=== PATIENT | male | born 1965 | race Caucasian/White ===

== ENCOUNTER 2025-10-17 22:37 | Inpatient (IN) | payer BC, OTHER ==
[~2025-10-17] VITALS: Ht 182.9 cm; Wt 99.8 kg
[2025-10-17 22:40] VITALS: O2SAT 98
[2025-10-17] MEDS ORDERED: ONDANSETRON HCL 4MG/2ML INJ IV ONE (23:00)
[2025-10-17] MEDS: SODIUM CHLORIDE 0.9% 1,000 ML IV ONE (23:00)
[2025-10-17] MEDS ORDERED: MORPHINE SULFATE 4 MG/ML INJ (FOR IV/IM USE) IV ONE (23:00)
[2025-10-17 23:32] LABS: BASOPHILS % 0.4 % (0.0-2.0); EOSINOPHILS % 1.6 % (0.0-5.0); HEMATOCRIT. 51.4 % (42.0-52.0); HEMOGLOBIN. 17.2 g/dL (14.0-18.0); LYMPHOCYTES % 15.3 % (20.0-50.0); MEAN PLATELET VOLUME 7.8 fl (7.4-10.4); MONOCYTES % 7.7 % (2.0-8.0); NEUTROPHILS % 75.0 % (40.0-76.0); PLATELET 146 x1000/uL (130-400); RED BLOOD CELL COUNT 5.47 mill/uL (4.7-6.1); RED CELL DISTRIBUTION WIDTH 14.9 % (11.6-14.6)
[2025-10-17 23:44] LABS: INR 1.1
[2025-10-17 23:46] LABS: CREATININE 1.2 mg/dL (0.6-1.3); UREA NITROGEN BLOOD 11 mg/dL (9-23)
[2025-10-17 23:47] LABS: PROTEIN TOTAL 6.4 g/dL (6.0-8.3)
[2025-10-17 23:48] LABS: ASPARTATE AMINOTRANSFERASE 24 IU/L (<34); BILIRUBIN DIRECT 0.2 mg/dL (<=3.0)
[2025-10-17 23:49] LABS: BILIRUBIN TOTAL 0.5 mg/dL (0.1-1.0)
[2025-10-18] MEDS: ONDANSETRON HCL 4MG/2ML INJ IV NR (00:43)
[2025-10-18] MEDS: MORPHINE SULFATE 4 MG/ML INJ (FOR IV/IM USE) IV NR (00:43)
[2025-10-18 01:31] LABS: CLARITY URINE CLEAR (CLEAR); COLOR URINE YELLOW (YELLOW); GLUCOSE URINE NEGATIVE (NEGATIVE); KETONES URINE NEGATIVE (NEGATIVE); LEUKOCYTE ESTERASE URINE NEGATIVE (NEGATIVE); NITRITE URINE NEGATIVE (NEGATIVE); OCCULT BLOOD URINE NEGATIVE (NEGATIVE); PH URINE 8.0 (4.5-8.0); PROTEIN URINE NEGATIVE (NEGATIVE); SPECIFIC GRAVITY URINE 1.063 (1.005-1.030); UROBILINOGEN URINE 0.2 E.U./dL (0.2-1.0)
[2025-10-18] MEDS ORDERED: ONDANSETRON HCL 4MG TABLET PO PRN (02:30)
[2025-10-18] MEDS ORDERED: NALOXONE HCL 0.4MG/ML VIAL IV PRN (02:45)
[2025-10-18 02:52] VITALS: BP 106/58; PULSE 64; RESP 18; TEMP 36.6404
[2025-10-18] MEDS: HYDROCODONE/ACETAMINOPHEN 10/325MG TABLET PO PRN (03:39)
[2025-10-18] MEDS ORDERED: IOHEXOL-300 100 ML BOTTLE ONE (03:53)
[2025-10-18] MEDS ORDERED: INFLUENZA VACCINE 05/PF 0.5 ML SYRINGE IM ONE ×2 (06:00→19:30)
[2025-10-18 08:00] VITALS: BP 113/63; PULSE 60; RESP 18; TEMP 36.9; O2SAT 93
[2025-10-18] MEDS: RIVAROXABAN 10 MG TABLET PO SCH (10:14)
[2025-10-18 12:00] VITALS: BP 155/95; PULSE 64; RESP 18; TEMP 36.1; O2SAT 96
[2025-10-18 16:00] VITALS: BP 158/98; PULSE 72; RESP 16; TEMP 36.5; O2SAT 96
== END 2025-10-18 17:55 | disposition left against medical advice (07) | DRG 392 ==
LOC: ER 22:37 → EDBEDREQ 23:57 → EDBEDREQTM 23:57 → ENRESERV 10-18 00:21 → ER 10-18 00:31 → 4WST 10-18 02:01
PROVIDERS: ADMIT Internal Medicine; ATTEND Internal Medicine
DX: R10.A2 Flank pain, left side (principal); K76.89 Other specified diseases of liver; Z53.29 Procedure and treatment not carried out because of patient's decision for other reasons; Z86.718 Personal history of other venous thrombosis and embolism
CPT/HCPCS: 36415; 71045; 72146; 72148; 74177; 80048; 80076; 81003; 83605; 85025; 86850; 86900; 90686; 99285; J2270; J2405; J7030; Q9967